=== PATIENT | male | born 1985 | race Caucasian/White ===

== ENCOUNTER 2022-04-01 19:10 | Inpatient (IN) | payer MEDICAID, OTHER, SELFPAY ==
[~2022-04-01] VITALS: Ht 172.7 cm; Wt 91.9 kg
[2022-04-01] MEDS: risperiDONE 2 MG TAB PO SCH (21:00)
[2022-04-01] MEDS ORDERED: ADDE30TA PO (22:01)
[2022-04-01] MEDS ORDERED: BACL1TAB9 PO (22:01)
[2022-04-01] MEDS ORDERED: DEXT15CA5 PO (22:01)
[2022-04-01] MEDS ORDERED: DIVA500T9 PO (22:01)
[2022-04-01] MEDS ORDERED: GABA-282 PO (22:01)
[2022-04-01] MEDS ORDERED: MED NOTE (22:02)
[2022-04-01] MEDS ORDERED: HOME MED LIST COMPLETE! XX SCH (22:05)
[2022-04-02] MEDS ORDERED: NICOTINE 21MG/24HR 1 EA TRANSDERMAL TD PRN (01:25)
[2022-04-02] MEDS ORDERED: MOM 30ML SUSPENSION UDC PO PRN (01:25)
[2022-04-02 02:10] VITALS: BP 111/66
[2022-04-02] MEDS: BACLOFEN 10 MG TAB PO SCH ×2 (11:02→20:22)
[2022-04-02] MEDS: GABAPENTIN 300 MG CAP PO SCH ×3 (11:02→20:22)
[2022-04-02] MEDS: DIVALPROEX 500MG *ER* TAB PO SCH ×2 (11:02→20:22)
[2022-04-02] MEDS: NICOTINE 14 MG/24 HR TRANSDERMAL TD SCH (11:03)
[2022-04-02] MEDS ORDERED: SUBO8MIS SL (11:37)
[2022-04-02] MEDS: BUPRENORPHINE/NALOXONE 8-2MG SUBLINGUAL TABLET(SUBOXONE) SL SCH (11:46)
[2022-04-02] MEDS: traZODone 50 MG TAB PO PRN (19:38)
[2022-04-02] MEDS: risperiDONE 2 MG TAB PO SCH (20:24)
[2022-04-02] MEDS ORDERED: BUPRENORPHINE/NALOXONE 8-2MG SUBLINGUAL TABLET(SUBOXONE) SL SCH (21:00)
[2022-04-03] MEDS ORDERED: diphenhydrAMINE 25MG CAP PO ONE (00:10)
[2022-04-03] MEDS: BUPRENORPHINE/NALOXONE 8-2MG SUBLINGUAL TABLET(SUBOXONE) SL SCH ×2 (07:01→11:31)
[2022-04-03] MEDS: BACLOFEN 10 MG TAB PO SCH ×2 (09:48→21:46)
[2022-04-03] MEDS: DIVALPROEX 500MG *ER* TAB PO SCH ×2 (09:48→21:47)
[2022-04-03] MEDS: GABAPENTIN 300 MG CAP PO SCH ×3 (09:48→21:46)
[2022-04-03] MEDS: NICOTINE 14 MG/24 HR TRANSDERMAL TD SCH (09:48)
[2022-04-03] MEDS: buPROPion **XL** TABLET 150MG (WELLBUTRIN XL) PO SCH (14:00)
[2022-04-03] MEDS: risperiDONE 2 MG TAB PO SCH (21:46)
[2022-04-04] MEDS: BUPRENORPHINE/NALOXONE 8-2MG SUBLINGUAL TABLET(SUBOXONE) SL SCH ×2 (06:37→11:32)
[2022-04-04] MEDS: NICOTINE 14 MG/24 HR TRANSDERMAL TD SCH (08:08)
[2022-04-04] MEDS: GABAPENTIN 300 MG CAP PO SCH ×3 (08:09→20:54)
[2022-04-04] MEDS: DIVALPROEX 500MG *ER* TAB PO SCH ×2 (08:09→20:55)
[2022-04-04] MEDS: BACLOFEN 10 MG TAB PO SCH ×2 (08:09→20:55)
[2022-04-04] MEDS: buPROPion **XL** TABLET 150MG (WELLBUTRIN XL) PO SCH (08:09)
[2022-04-04] MEDS: ADDERALL 5 MG TAB PO SCH (09:35)
[2022-04-04] MEDS: hydrOXYzine 50 MG TAB PO PRN ×2 (12:35→22:25)
[2022-04-04 16:19] VITALS: BP 127/62
[2022-04-04] MEDS: risperiDONE 2 MG TAB PO SCH (20:54)
[2022-04-04] MEDS: MAALOX 30 ML SUSP *UDC PO PRN (22:02)
[2022-04-04] MEDS: ACETAMINOPHEN TAB 650MG DOSE (2X325MG) PO PRN (22:25)
[2022-04-05] MEDS: traZODone 50 MG TAB PO PRN (00:20)
[2022-04-05] MEDS: BUPRENORPHINE/NALOXONE 8-2MG SUBLINGUAL TABLET(SUBOXONE) SL SCH ×2 (06:27→12:59)
[2022-04-05 06:48] VITALS: BP_SYST 130; BP_SYST 133; BP_DIAS 66; BP_DIAS 75
[2022-04-05] MEDS: GABAPENTIN 300 MG CAP PO SCH ×3 (10:32→20:13)
[2022-04-05] MEDS: buPROPion **XL** TABLET 150MG (WELLBUTRIN XL) PO SCH (10:32)
[2022-04-05] MEDS: NICOTINE 14 MG/24 HR TRANSDERMAL TD SCH (10:33)
[2022-04-05] MEDS: BACLOFEN 10 MG TAB PO SCH ×2 (10:33→20:13)
[2022-04-05] MEDS: ADDERALL 5 MG TAB PO SCH (10:33)
[2022-04-05] MEDS: DIVALPROEX 500MG *ER* TAB PO SCH ×2 (10:33→20:13)
[2022-04-05] MEDS: hydrOXYzine 50 MG TAB PO PRN (14:29)
[2022-04-05] MEDS: MAALOX 30 ML SUSP *UDC PO PRN (16:39)
[2022-04-05 17:11] VITALS: BP 120/58
[2022-04-05] MEDS: risperiDONE 2 MG TAB PO SCH (20:12)
[2022-04-05] MEDS: traZODone 100 MG TAB PO PRN (20:12)
[2022-04-06] MEDS: BUPRENORPHINE/NALOXONE 8-2MG SUBLINGUAL TABLET(SUBOXONE) SL SCH ×2 (06:21→12:13)
[2022-04-06] MEDS: GABAPENTIN 300 MG CAP PO SCH ×3 (08:57→21:35)
[2022-04-06] MEDS: buPROPion **XL** TABLET 150MG (WELLBUTRIN XL) PO SCH (08:57)
[2022-04-06] MEDS: DIVALPROEX 500MG *ER* TAB PO SCH ×2 (08:57→21:35)
[2022-04-06] MEDS: BACLOFEN 10 MG TAB PO SCH ×2 (08:57→21:34)
[2022-04-06] MEDS: ADDERALL 5 MG TAB PO SCH (08:58)
[2022-04-06] MEDS: NICOTINE 14 MG/24 HR TRANSDERMAL TD SCH (09:00)
[2022-04-06] MEDS: risperiDONE 1 MG TAB PO SCH (12:45)
[2022-04-06] MEDS: hydrOXYzine 50 MG TAB PO PRN ×2 (14:43→21:54)
[2022-04-06 16:59] VITALS: BP 132/89
[2022-04-06] MEDS: risperiDONE 2 MG TAB PO SCH (21:35)
[2022-04-07] MEDS: BUPRENORPHINE/NALOXONE 8-2MG SUBLINGUAL TABLET(SUBOXONE) SL SCH ×2 (07:14→11:36)
[2022-04-07] MEDS: BACLOFEN 10 MG TAB PO SCH ×2 (07:52→20:57)
[2022-04-07] MEDS: GABAPENTIN 300 MG CAP PO SCH ×3 (07:52→20:56)
[2022-04-07] MEDS: buPROPion **XL** TABLET 150MG (WELLBUTRIN XL) PO SCH (07:52)
[2022-04-07] MEDS: risperiDONE 1 MG TAB PO SCH (07:52)
[2022-04-07] MEDS: NICOTINE 14 MG/24 HR TRANSDERMAL TD SCH (07:52)
[2022-04-07] MEDS: ADDERALL 5 MG TAB PO SCH (07:52)
[2022-04-07] MEDS: DIVALPROEX 500MG *ER* TAB PO SCH ×2 (07:53→20:57)
[2022-04-07] MEDS: hydrOXYzine 50 MG TAB PO PRN ×2 (12:45→20:56)
[2022-04-07 16:00] VITALS: BP 127/70
[2022-04-07] MEDS: risperiDONE 2 MG TAB PO SCH (20:56)
[2022-04-07] MEDS: MAALOX 30 ML SUSP *UDC PO PRN (21:30)
[2022-04-08] MEDS: BUPRENORPHINE/NALOXONE 8-2MG SUBLINGUAL TABLET(SUBOXONE) SL SCH ×2 (06:52→11:50)
[2022-04-08] MEDS: DIVALPROEX 500MG *ER* TAB PO SCH ×2 (08:09→20:07)
[2022-04-08] MEDS: BACLOFEN 10 MG TAB PO SCH ×2 (08:09→20:07)
[2022-04-08] MEDS: risperiDONE 1 MG TAB PO SCH (08:09)
[2022-04-08] MEDS: buPROPion **XL** TABLET 150MG (WELLBUTRIN XL) PO SCH (08:09)
[2022-04-08] MEDS: ADDERALL 5 MG TAB PO SCH (08:10)
[2022-04-08] MEDS: GABAPENTIN 300 MG CAP PO SCH ×3 (08:10→20:07)
[2022-04-08] MEDS: NICOTINE 14 MG/24 HR TRANSDERMAL TD SCH (08:10)
[2022-04-08] MEDS: MAALOX 30 ML SUSP *UDC PO PRN (16:09)
[2022-04-08 16:21] VITALS: BP 112/65
[2022-04-08] MEDS: hydrOXYzine 50 MG TAB PO PRN (20:07)
[2022-04-08] MEDS: risperiDONE 2 MG TAB PO SCH (20:07)
[2022-04-08] MEDS: traZODone 100 MG TAB PO PRN (23:08)
[2022-04-09] MEDS: BUPRENORPHINE/NALOXONE 8-2MG SUBLINGUAL TABLET(SUBOXONE) SL SCH ×2 (06:48→12:06)
[2022-04-09] MEDS: BACLOFEN 10 MG TAB PO SCH ×2 (08:07→20:27)
[2022-04-09] MEDS: GABAPENTIN 300 MG CAP PO SCH ×3 (08:07→20:27)
[2022-04-09] MEDS: DIVALPROEX 500MG *ER* TAB PO SCH ×2 (08:07→20:27)
[2022-04-09] MEDS: risperiDONE 1 MG TAB PO SCH (08:08)
[2022-04-09] MEDS: ADDERALL 5 MG TAB PO SCH (08:08)
[2022-04-09] MEDS: NICOTINE 14 MG/24 HR TRANSDERMAL TD SCH (08:09)
[2022-04-09] MEDS: buPROPion **XL** TABLET 150MG (WELLBUTRIN XL) PO SCH (08:09)
[2022-04-09] MEDS: risperiDONE 2 MG TAB PO SCH (20:26)
[2022-04-09] MEDS: traZODone 100 MG TAB PO PRN (20:42)
[2022-04-10] MEDS: BUPRENORPHINE/NALOXONE 8-2MG SUBLINGUAL TABLET(SUBOXONE) SL SCH ×2 (06:39→12:13)
[2022-04-10] MEDS: BACLOFEN 10 MG TAB PO SCH ×2 (09:59→20:09)
[2022-04-10] MEDS: GABAPENTIN 300 MG CAP PO SCH ×3 (09:59→20:08)
[2022-04-10] MEDS: DIVALPROEX 500MG *ER* TAB PO SCH ×2 (09:59→20:09)
[2022-04-10] MEDS: ADDERALL 5 MG TAB PO SCH (10:00)
[2022-04-10] MEDS: NICOTINE 14 MG/24 HR TRANSDERMAL TD SCH (10:00)
[2022-04-10] MEDS: buPROPion **XL** TABLET 150MG (WELLBUTRIN XL) PO SCH (10:01)
[2022-04-10] MEDS: risperiDONE 1 MG TAB PO SCH (10:03)
[2022-04-10 19:06] VITALS: BP 140/75
[2022-04-10] MEDS: risperiDONE 2 MG TAB PO SCH (20:08)
[2022-04-10] MEDS: traZODone 100 MG TAB PO PRN (21:34)
[2022-04-11] MEDS: hydrOXYzine 50 MG TAB PO PRN ×2 (00:35→21:20)
[2022-04-11] MEDS: BUPRENORPHINE/NALOXONE 8-2MG SUBLINGUAL TABLET(SUBOXONE) SL SCH ×3 (06:50→12:41)
[2022-04-11] MEDS: BACLOFEN 10 MG TAB PO SCH ×2 (10:06→21:20)
[2022-04-11] MEDS: DIVALPROEX 500MG *ER* TAB PO SCH ×2 (10:06→21:20)
[2022-04-11] MEDS: buPROPion **XL** TABLET 150MG (WELLBUTRIN XL) PO SCH (10:07)
[2022-04-11] MEDS: GABAPENTIN 300 MG CAP PO SCH ×3 (10:07→21:19)
[2022-04-11] MEDS: risperiDONE 1 MG TAB PO SCH (10:07)
[2022-04-11] MEDS: ADDERALL 5 MG TAB PO SCH (10:07)
[2022-04-11] MEDS: NICOTINE 14 MG/24 HR TRANSDERMAL TD SCH (10:11)
[2022-04-11 18:12] VITALS: BP 118/56
[2022-04-11] MEDS: risperiDONE 2 MG TAB PO SCH (21:20)
[2022-04-12] MEDS: BUPRENORPHINE/NALOXONE 8-2MG SUBLINGUAL TABLET(SUBOXONE) SL SCH ×2 (06:00→12:46)
[2022-04-12 06:59] VITALS: BP 109/71
[2022-04-12] MEDS: DIVALPROEX 500MG *ER* TAB PO SCH ×2 (08:08→20:27)
[2022-04-12] MEDS: ADDERALL 5 MG TAB PO SCH (08:08)
[2022-04-12] MEDS: BACLOFEN 10 MG TAB PO SCH ×2 (08:08→20:27)
[2022-04-12] MEDS: GABAPENTIN 300 MG CAP PO SCH ×3 (08:08→20:27)
[2022-04-12] MEDS: buPROPion **XL** TABLET 150MG (WELLBUTRIN XL) PO SCH (08:09)
[2022-04-12] MEDS: risperiDONE 1 MG TAB PO SCH (08:09)
[2022-04-12] MEDS: NICOTINE 14 MG/24 HR TRANSDERMAL TD SCH (08:09)
[2022-04-12 18:19] VITALS: BP 120/57
[2022-04-12] MEDS: hydrOXYzine 50 MG TAB PO PRN (20:27)
[2022-04-12] MEDS: risperiDONE 2 MG TAB PO SCH (20:27)
[2022-04-12] MEDS: traZODone 100 MG TAB PO PRN (20:27)
[2022-04-13] MEDS: BUPRENORPHINE/NALOXONE 8-2MG SUBLINGUAL TABLET(SUBOXONE) SL SCH ×2 (06:24→11:48)
[2022-04-13] MEDS: DIVALPROEX 500MG *ER* TAB PO SCH ×2 (08:31→20:14)
[2022-04-13] MEDS: buPROPion **XL** TABLET 150MG (WELLBUTRIN XL) PO SCH (08:31)
[2022-04-13] MEDS: GABAPENTIN 300 MG CAP PO SCH ×3 (08:31→20:14)
[2022-04-13] MEDS: BACLOFEN 10 MG TAB PO SCH ×2 (08:31→20:14)
[2022-04-13] MEDS: ADDERALL 5 MG TAB PO SCH (08:31)
[2022-04-13] MEDS: risperiDONE 1 MG TAB PO SCH (08:31)
[2022-04-13] MEDS: NICOTINE 14 MG/24 HR TRANSDERMAL TD SCH (08:34)
[2022-04-13] MEDS: diphenhydrAMINE CREAM 30GM TOP PRN (13:43)
[2022-04-13 18:00] VITALS: BP 142/68
[2022-04-13] MEDS: risperiDONE 2 MG TAB PO SCH (20:13)
[2022-04-13] MEDS: traZODone 100 MG TAB PO PRN (20:14)
[2022-04-14] MEDS: BUPRENORPHINE/NALOXONE 8-2MG SUBLINGUAL TABLET(SUBOXONE) SL SCH ×2 (06:56→12:43)
[2022-04-14] MEDS: buPROPion **XL** TABLET 150MG (WELLBUTRIN XL) PO SCH (09:28)
[2022-04-14] MEDS: ADDERALL 5 MG TAB PO SCH (09:29)
[2022-04-14] MEDS: risperiDONE 1 MG TAB PO SCH (09:29)
[2022-04-14] MEDS: BACLOFEN 10 MG TAB PO SCH ×2 (09:29→20:07)
[2022-04-14] MEDS: GABAPENTIN 300 MG CAP PO SCH ×3 (09:30→20:06)
[2022-04-14] MEDS: DIVALPROEX 500MG *ER* TAB PO SCH ×2 (09:30→20:06)
[2022-04-14] MEDS: NICOTINE 14 MG/24 HR TRANSDERMAL TD SCH (09:30)
[2022-04-14] MEDS: hydrOXYzine 50 MG TAB PO PRN (18:03)
[2022-04-14 18:22] VITALS: BP 125/60
[2022-04-14] MEDS: risperiDONE 2 MG TAB PO SCH (20:06)
[2022-04-14] MEDS: traZODone 100 MG TAB PO PRN (21:35)
[2022-04-15 06:00] VITALS: BP 107/76
[2022-04-15] MEDS: BUPRENORPHINE/NALOXONE 8-2MG SUBLINGUAL TABLET(SUBOXONE) SL SCH ×2 (06:15→12:35)
[2022-04-15] MEDS: buPROPion **XL** TABLET 150MG (WELLBUTRIN XL) PO SCH (09:31)
[2022-04-15] MEDS: BACLOFEN 10 MG TAB PO SCH ×2 (09:31→20:07)
[2022-04-15] MEDS: ADDERALL 5 MG TAB PO SCH (09:31)
[2022-04-15] MEDS: DIVALPROEX 500MG *ER* TAB PO SCH ×2 (09:31→20:07)
[2022-04-15] MEDS: risperiDONE 1 MG TAB PO SCH (09:32)
[2022-04-15] MEDS: NICOTINE 14 MG/24 HR TRANSDERMAL TD SCH (09:33)
[2022-04-15] MEDS: GABAPENTIN 300 MG CAP PO SCH ×3 (09:33→20:07)
[2022-04-15] MEDS: hydrOXYzine 50 MG TAB PO PRN (15:01)
[2022-04-15 15:45] VITALS: BP 114/68
[2022-04-15] MEDS: risperiDONE 2 MG TAB PO SCH (20:07)
[2022-04-15] MEDS: diphenhydrAMINE CREAM 30GM TOP PRN (21:31)
[2022-04-15] MEDS: traZODone 100 MG TAB PO PRN (22:38)
[2022-04-16 07:01] VITALS: BP 142/84
[2022-04-16] MEDS: BUPRENORPHINE/NALOXONE 8-2MG SUBLINGUAL TABLET(SUBOXONE) SL SCH ×2 (07:06→12:49)
[2022-04-16] MEDS: NICOTINE 14 MG/24 HR TRANSDERMAL TD SCH (10:09)
[2022-04-16] MEDS: ADDERALL 5 MG TAB PO SCH (10:10)
[2022-04-16] MEDS: risperiDONE 1 MG TAB PO SCH (10:10)
[2022-04-16] MEDS: GABAPENTIN 300 MG CAP PO SCH ×3 (10:10→21:23)
[2022-04-16] MEDS: DIVALPROEX 500MG *ER* TAB PO SCH ×2 (10:10→21:22)
[2022-04-16] MEDS: BACLOFEN 10 MG TAB PO SCH ×2 (10:11→21:22)
[2022-04-16] MEDS: buPROPion **XL** TABLET 150MG (WELLBUTRIN XL) PO SCH (10:11)
[2022-04-16] MEDS: OLANZapine ORAL DISINTEGRATING TAB 5MG PO PRN (15:57)
[2022-04-16] MEDS: hydrOXYzine 50 MG TAB PO PRN (16:53)
[2022-04-16 18:39] VITALS: BP 128/70
[2022-04-16] MEDS: risperiDONE 2 MG TAB PO SCH (21:23)
[2022-04-17] MEDS: BUPRENORPHINE/NALOXONE 8-2MG SUBLINGUAL TABLET(SUBOXONE) SL SCH ×2 (06:39→12:36)
[2022-04-17 06:56] VITALS: BP 124/71
[2022-04-17] MEDS: ADDERALL 5 MG TAB PO SCH (09:51)
[2022-04-17] MEDS: NICOTINE 14 MG/24 HR TRANSDERMAL TD SCH (09:51)
[2022-04-17] MEDS: buPROPion **XL** TABLET 150MG (WELLBUTRIN XL) PO SCH (09:52)
[2022-04-17] MEDS: GABAPENTIN 300 MG CAP PO SCH ×3 (09:52→21:51)
[2022-04-17] MEDS: risperiDONE 1 MG TAB PO SCH (09:52)
[2022-04-17] MEDS: BACLOFEN 10 MG TAB PO SCH ×2 (09:52→21:51)
[2022-04-17] MEDS: DIVALPROEX 500MG *ER* TAB PO SCH ×2 (09:52→21:51)
[2022-04-17] MEDS: hydrOXYzine 50 MG TAB PO PRN ×2 (10:45→21:51)
[2022-04-17] MEDS: BENZTROPINE 1 MG TAB PO PRN (11:03)
[2022-04-17] MEDS: OLANZapine ORAL DISINTEGRATING TAB 5MG PO PRN ×2 (12:36→22:22)
[2022-04-17 19:01] VITALS: BP 108/65
[2022-04-17] MEDS: risperiDONE 2 MG TAB PO SCH (21:51)
[2022-04-17] MEDS: traZODone 100 MG TAB PO PRN (22:22)
[2022-04-18] MEDS: BUPRENORPHINE/NALOXONE 8-2MG SUBLINGUAL TABLET(SUBOXONE) SL SCH ×2 (06:19→13:11)
[2022-04-18 06:58] VITALS: BP 99/59
[2022-04-18] MEDS: NICOTINE 14 MG/24 HR TRANSDERMAL TD SCH (09:29)
[2022-04-18] MEDS: buPROPion **XL** TABLET 150MG (WELLBUTRIN XL) PO SCH (09:29)
[2022-04-18] MEDS: DIVALPROEX 500MG *ER* TAB PO SCH ×2 (09:29→21:44)
[2022-04-18] MEDS: GABAPENTIN 300 MG CAP PO SCH ×3 (09:29→20:06)
[2022-04-18] MEDS: risperiDONE 1 MG TAB PO SCH (09:29)
[2022-04-18] MEDS: BACLOFEN 10 MG TAB PO SCH ×2 (09:29→20:06)
[2022-04-18] MEDS: ADDERALL 5 MG TAB PO SCH (09:29)
[2022-04-18] MEDS: hydrOXYzine 50 MG TAB PO PRN (14:27)
[2022-04-18 17:50] VITALS: BP 140/59
[2022-04-18] MEDS: risperiDONE 2 MG TAB PO SCH (20:06)
[2022-04-18] MEDS: traZODone 100 MG TAB PO PRN (21:44)
[2022-04-19] MEDS: BUPRENORPHINE/NALOXONE 8-2MG SUBLINGUAL TABLET(SUBOXONE) SL SCH ×2 (06:03→12:54)
[2022-04-19 07:03] VITALS: BP 123/60
[2022-04-19] MEDS: DIVALPROEX 500MG *ER* TAB PO SCH ×2 (09:57→20:02)
[2022-04-19] MEDS: BACLOFEN 10 MG TAB PO SCH ×2 (09:57→20:01)
[2022-04-19] MEDS: GABAPENTIN 300 MG CAP PO SCH ×3 (09:58→20:01)
[2022-04-19] MEDS: ADDERALL 5 MG TAB PO SCH (09:59)
[2022-04-19] MEDS: risperiDONE 1 MG TAB PO SCH (09:59)
[2022-04-19] MEDS: buPROPion **XL** TABLET 150MG (WELLBUTRIN XL) PO SCH (09:59)
[2022-04-19] MEDS: NICOTINE 14 MG/24 HR TRANSDERMAL TD SCH (09:59)
[2022-04-19] MEDS: hydrOXYzine 50 MG TAB PO PRN (14:29)
[2022-04-19] MEDS: OLANZapine ORAL DISINTEGRATING TAB 5MG PO PRN ×2 (18:00→21:09)
[2022-04-19 18:49] VITALS: BP 129/74
[2022-04-19] MEDS: BENZTROPINE 1 MG TAB PO PRN (20:01)
[2022-04-19] MEDS: risperiDONE 2 MG TAB PO SCH (20:01)
[2022-04-19] MEDS: ACETAMINOPHEN TAB 650MG DOSE (2X325MG) PO PRN (20:57)
[2022-04-19] MEDS: traZODone 100 MG TAB PO PRN (21:08)
[2022-04-20] MEDS: BUPRENORPHINE/NALOXONE 8-2MG SUBLINGUAL TABLET(SUBOXONE) SL SCH ×2 (06:35→13:04)
[2022-04-20 07:01] VITALS: BP 109/62
[2022-04-20] MEDS: buPROPion **XL** TABLET 150MG (WELLBUTRIN XL) PO SCH (08:49)
[2022-04-20] MEDS: GABAPENTIN 300 MG CAP PO SCH ×3 (08:49→20:58)
[2022-04-20] MEDS: DIVALPROEX 500MG *ER* TAB PO SCH ×2 (08:49→20:59)
[2022-04-20] MEDS: BACLOFEN 10 MG TAB PO SCH ×2 (08:49→20:59)
[2022-04-20] MEDS: risperiDONE 1 MG TAB PO SCH (08:49)
[2022-04-20] MEDS: ADDERALL 5 MG TAB PO SCH (08:50)
[2022-04-20] MEDS: NICOTINE 14 MG/24 HR TRANSDERMAL TD SCH (08:52)
[2022-04-20] MEDS: BENZTROPINE 1 MG TAB PO PRN (10:02)
[2022-04-20] MEDS: risperiDONE 2 MG TAB PO SCH (20:58)
[2022-04-21 06:00] VITALS: BP 103/56
[2022-04-21] MEDS: BUPRENORPHINE/NALOXONE 8-2MG SUBLINGUAL TABLET(SUBOXONE) SL SCH ×2 (06:16→11:53)
[2022-04-21] MEDS: NICOTINE 14 MG/24 HR TRANSDERMAL TD SCH (08:19)
[2022-04-21] MEDS: GABAPENTIN 300 MG CAP PO SCH ×3 (08:20→22:54)
[2022-04-21] MEDS: DIVALPROEX 500MG *ER* TAB PO SCH ×2 (08:20→22:34)
[2022-04-21] MEDS: ADDERALL 5 MG TAB PO SCH (08:20)
[2022-04-21] MEDS: risperiDONE 1 MG TAB PO SCH ×2 (08:20→22:33)
[2022-04-21] MEDS: BACLOFEN 10 MG TAB PO SCH ×2 (08:20→22:34)
[2022-04-21] MEDS: buPROPion **XL** TABLET 150MG (WELLBUTRIN XL) PO SCH ×2 (08:20→22:34)
[2022-04-21] MEDS: OLANZapine ORAL DISINTEGRATING TAB 5MG PO PRN (10:34)
[2022-04-21] MEDS: hydrOXYzine 50 MG TAB PO PRN ×2 (10:35→22:37)
[2022-04-21] MEDS: BENZTROPINE 1 MG TAB PO PRN (11:52)
[2022-04-21] MEDS: ACETAMINOPHEN TAB 650MG DOSE (2X325MG) PO PRN (12:26)
[2022-04-21 17:25] VITALS: BP 105/63
[2022-04-21] MEDS: traZODone 100 MG TAB PO PRN (22:37)
[2022-04-21] MEDS: risperiDONE 2 MG TAB PO SCH (22:54)
[2022-04-22] MEDS: BENZTROPINE 1 MG TAB PO PRN ×2 (01:35→16:15)
[2022-04-22] MEDS: OLANZapine ORAL DISINTEGRATING TAB 5MG PO PRN (01:36)
[2022-04-22 06:50] VITALS: BP 101/50
[2022-04-22] MEDS: BUPRENORPHINE/NALOXONE 8-2MG SUBLINGUAL TABLET(SUBOXONE) SL SCH ×2 (08:41→13:13)
[2022-04-22] MEDS: ADDERALL 5 MG TAB PO SCH (08:42)
[2022-04-22] MEDS: BACLOFEN 10 MG TAB PO SCH ×2 (08:42→20:33)
[2022-04-22] MEDS: GABAPENTIN 300 MG CAP PO SCH ×3 (08:42→20:33)
[2022-04-22] MEDS: risperiDONE 1 MG TAB PO SCH (08:42)
[2022-04-22] MEDS: DIVALPROEX 500MG *ER* TAB PO SCH ×2 (08:42→20:33)
[2022-04-22] MEDS: buPROPion **XL** TABLET 150MG (WELLBUTRIN XL) PO SCH (08:42)
[2022-04-22] MEDS: NICOTINE 14 MG/24 HR TRANSDERMAL TD SCH (08:43)
[2022-04-22] MEDS: hydrOXYzine 50 MG TAB PO PRN (12:44)
[2022-04-22 17:35] VITALS: BP 133/76
[2022-04-22] MEDS: risperiDONE 2 MG TAB PO SCH (20:33)
[2022-04-22] MEDS: traZODone 100 MG TAB PO PRN (20:33)
[2022-04-23 06:00] VITALS: BP 98/57
[2022-04-23] MEDS: BUPRENORPHINE/NALOXONE 8-2MG SUBLINGUAL TABLET(SUBOXONE) SL SCH ×2 (07:00→12:49)
[2022-04-23] MEDS: BACLOFEN 10 MG TAB PO SCH ×2 (09:26→20:02)
[2022-04-23] MEDS: ADDERALL 5 MG TAB PO SCH (09:26)
[2022-04-23] MEDS: risperiDONE 1 MG TAB PO SCH (09:26)
[2022-04-23] MEDS: NICOTINE 14 MG/24 HR TRANSDERMAL TD SCH (09:26)
[2022-04-23] MEDS: GABAPENTIN 300 MG CAP PO SCH ×3 (09:27→20:01)
[2022-04-23] MEDS: buPROPion **XL** TABLET 150MG (WELLBUTRIN XL) PO SCH (09:27)
[2022-04-23] MEDS: DIVALPROEX 500MG *ER* TAB PO SCH ×2 (09:27→20:01)
[2022-04-23] MEDS: OLANZapine ORAL DISINTEGRATING TAB 5MG PO PRN ×2 (12:10→20:06)
[2022-04-23 18:19] VITALS: BP 119/74
[2022-04-23] MEDS: traZODone 100 MG TAB PO PRN (20:01)
[2022-04-23] MEDS: risperiDONE 2 MG TAB PO SCH (20:01)
[2022-04-24] MEDS: BUPRENORPHINE/NALOXONE 8-2MG SUBLINGUAL TABLET(SUBOXONE) SL SCH ×2 (06:28→12:57)
[2022-04-24 06:38] VITALS: BP 100/57
[2022-04-24] MEDS: ADDERALL 5 MG TAB PO SCH (08:22)
[2022-04-24] MEDS: GABAPENTIN 300 MG CAP PO SCH ×3 (08:22→20:21)
[2022-04-24] MEDS: NICOTINE 14 MG/24 HR TRANSDERMAL TD SCH (08:22)
[2022-04-24] MEDS: BACLOFEN 10 MG TAB PO SCH ×2 (08:22→20:21)
[2022-04-24] MEDS: risperiDONE 1 MG TAB PO SCH (08:22)
[2022-04-24] MEDS: buPROPion **XL** TABLET 150MG (WELLBUTRIN XL) PO SCH (08:22)
[2022-04-24] MEDS: DIVALPROEX 500MG *ER* TAB PO SCH ×2 (08:24→20:21)
[2022-04-24] MEDS: hydrOXYzine 50 MG TAB PO PRN (15:06)
[2022-04-24 18:18] VITALS: BP 137/72
[2022-04-24] MEDS: traZODone 100 MG TAB PO PRN (20:21)
[2022-04-24] MEDS: risperiDONE 2 MG TAB PO SCH (20:21)
[2022-04-25] MEDS: BUPRENORPHINE/NALOXONE 8-2MG SUBLINGUAL TABLET(SUBOXONE) SL SCH ×2 (06:39→13:33)
[2022-04-25 06:49] VITALS: BP 104/63
[2022-04-25] MEDS: GABAPENTIN 300 MG CAP PO SCH ×3 (09:39→20:34)
[2022-04-25] MEDS: BACLOFEN 10 MG TAB PO SCH ×2 (09:39→20:34)
[2022-04-25] MEDS: DIVALPROEX 500MG *ER* TAB PO SCH ×2 (09:39→20:34)
[2022-04-25] MEDS: buPROPion **XL** TABLET 150MG (WELLBUTRIN XL) PO SCH (09:40)
[2022-04-25] MEDS: risperiDONE 1 MG TAB PO SCH (09:40)
[2022-04-25] MEDS: NICOTINE 14 MG/24 HR TRANSDERMAL TD SCH (09:40)
[2022-04-25] MEDS: ADDERALL 5 MG TAB PO SCH (09:41)
[2022-04-25] MEDS: OLANZapine ORAL DISINTEGRATING TAB 5MG PO PRN (11:31)
[2022-04-25 19:18] VITALS: BP 107/62
[2022-04-25] MEDS ORDERED: Amphetamine/Dextroamphetamine PO (20:16)
[2022-04-25] MEDS ORDERED: BENZ-52 PO (20:16)
[2022-04-25] MEDS ORDERED: RISP-9 PO (20:16)
[2022-04-25] MEDS ORDERED: DIPHCR TOP (20:16)
[2022-04-25] MEDS ORDERED: TRAZ-257 PO (20:16)
[2022-04-25] MEDS ORDERED: RISP-8 PO (20:16)
[2022-04-25] MEDS ORDERED: BUPR150T12 PO (20:16)
[2022-04-25] MEDS: hydrOXYzine 50 MG TAB PO PRN (20:34)
[2022-04-25] MEDS: traZODone 100 MG TAB PO PRN (20:34)
[2022-04-25] MEDS: risperiDONE 2 MG TAB PO SCH (20:34)
[2022-04-25] MEDS: BENZTROPINE 1 MG TAB PO PRN (21:28)
[2022-04-26] MEDS: BUPRENORPHINE/NALOXONE 8-2MG SUBLINGUAL TABLET(SUBOXONE) SL SCH (06:09)
[2022-04-26] MEDS: buPROPion **XL** TABLET 150MG (WELLBUTRIN XL) PO SCH (06:21)
[2022-04-26] MEDS: BACLOFEN 10 MG TAB PO SCH (06:21)
[2022-04-26] MEDS: GABAPENTIN 300 MG CAP PO SCH (06:21)
[2022-04-26] MEDS: risperiDONE 1 MG TAB PO SCH (06:22)
[2022-04-26] MEDS: DIVALPROEX 500MG *ER* TAB PO SCH (06:22)
[2022-04-26] MEDS: ADDERALL 5 MG TAB PO SCH (06:22)
[2022-04-26] MEDS: NICOTINE 14 MG/24 HR TRANSDERMAL TD SCH (06:27)
[2022-04-26 06:36] VITALS: BP 127/59
== END 2022-04-26 07:16 | DRG 751 ==
LOC: M ED 19:10 → M ED INP 04-02 01:23 → M PSY 04-02 01:56
PROVIDERS: ADMIT Psychiatry & Neurology Psychiatry; ATTEND Psychiatry & Neurology Psychiatry
DX: F29 Unspecified psychosis not due to a substance or known physiological condition (principal); F22 Delusional disorders; R45.851 Suicidal ideations; F43.23 Adjustment disorder with mixed anxiety and depressed mood; F60.89 Other specific personality disorders; M54.9 Dorsalgia, unspecified; G89.29 Other chronic pain; F90.9 Attention-deficit hyperactivity disorder, unspecified type; F17.210 Nicotine dependence, cigarettes, uncomplicated; Z79.899 Other long term (current) drug therapy; Z91.51 Personal history of suicidal behavior; Z63.5 Disruption of family by separation and divorce